=== PATIENT | female | born 1990 | race Caucasian/White ===

== ENCOUNTER → 2017-01-08 | Outpatient (CLI) | payer OTHER ==
--- NOTE | 2017-01-08 17:09 | US ---
EXAMINATION TYPE: US abdomen complete DATE OF EXAM: 01/08/2017 COMPARISON: NONE CLINICAL HISTORY: R10.11 RUQ Pain. RUQ pain for 2 weeks EXAM MEASUREMENTS: Liver Length: 18.2 cm Gallbladder Wall: 0.3 cm CBD: 0.2 cm Spleen: 10.8 cm Right Kidney: 10.0 x 4.1 x 4.0 cm Left Kidney: 10.5 x 5.6 x 4.9 cm Pancreas: visualized portions appear wnl Liver: upper limits of normal Gallbladder: no evidence of stones Evidence for sonographic Rojas's sign: no CBD: visualized portion appears wnl Spleen: wnl Right Kidney: no evidence of hydronephrosis or mass Left Kidney: no evidence of hydronephrosis or mass Upper IVC: wnl Abd Aorta: wnl The liver is homogenous. The intrahepatic portion of the IVC and proximal abdominal aorta are within normal limits. There is no evidence of cholelithiasis. Common bile duct is unremarkable. The visu alized portions of the pancreas are homogenous. The spleen is unremarkable. Kidneys are symmetric a nd free of hydronephrosis. No renal lesions are seen. IMPRESSION: Normal complete abdominal sonogram. No gallstones or dilated ducts.
== END | disposition home or self-care (01) ==
LOC: RADUSMAIN 16:13
PROVIDERS: ATTEND Internal Medicine
DX: R10.11 Right upper quadrant pain (principal)
CPT/HCPCS: 76700